=== PATIENT | male | born 1960 | race Caucasian/White ===

== ENCOUNTER 2023-08-17 04:33 | Emergency (ER) | payer MEDICARE, OTHER ==
[~2023-08-17] VITALS: Ht 175.3 cm; Wt 56.7 kg
[2023-08-17 04:35] VITALS: BP 121/85
== END 2023-08-17 05:07 | disposition home or self-care (01) ==
LOC: ER 04:33
DX: M54.42 Lumbago with sciatica, left side (principal); G89.29 Other chronic pain
CPT/HCPCS: 99283; A9270